=== PATIENT | male | born 1960 | race Caucasian/White ===

== ENCOUNTER → 2016-12-13 | Outpatient (CLI) | payer OTHER ==
[~2016-12-13] MED LIST: ALBUAER3 IN; ATOR1TAB PO; CETI10TA80 PO; CLOP75TA28 PO; ESCI20TA51 PO; FLUT110A INH; GABA-497 PO; GLIP-116 PO; IOHEXOL 350 MG/ML 100ML IJ ONE; LOSA100T27 PO; METO-462 PO; METO-5 PO; NIFE90TA30 PO; NORT25CA PO
[2016-12-13 14:39] LABS: INR 0.92 (0.9-1.15)
== END | disposition home or self-care (01) ==
LOC: CHF HDHVI 13:18
PROVIDERS: ATTEND Internal Medicine Cardiovascular Disease
DX: Z01.812 Encounter for preprocedural laboratory examination (principal); R79.1 Abnormal coagulation profile
CPT/HCPCS: 36415; 85610; 85730

== ENCOUNTER 2016-12-14 12:24 | Inpatient (IN) | payer BC ==
[~2016-12-14] VITALS: Ht 172.7 cm; Wt 86.8 kg
[2016-12-14] MEDS ORDERED: SODIUM CHL 0.9% 0 ML ONE (15:00)
[2016-12-14] MEDS ORDERED: ANGIOMAX 250 MG VIAL IV ONE (15:00)
[2016-12-14] MEDS ORDERED: methylPREDNISolone SOD SUCC 125 MG/2 ML VL ONE (15:01)
[2016-12-14] MEDS ORDERED: fentaNYL CITRATE 100 MCG/2 ML VL ONE (15:01)
[2016-12-14] MEDS ORDERED: MIDAZOLAM HCL 1MG/1ML-2 ML VIAL ONE (15:01)
[2016-12-14] MEDS ORDERED: diphenhdrAMINE HCL 50 MG/1 ML VL ONE (15:02)
[2016-12-14] MEDS ORDERED: LIDOCAINE 2%HCL (LOCAL ANESTH.) INJ 20ML MDV ONE (15:06)
[2016-12-14] MEDS ORDERED: HEPARIN DRIP/D5W 100UNITS/ML 250 ML IV SCH (16:11)
[2016-12-14] MEDS ORDERED: NITROGLYCERIN 0.4 MG SL TAB SL PRN (16:15)
[2016-12-14] MEDS ORDERED: DEXTROSE (50%) 50ML SYRG IV PRN (16:15)
[2016-12-14] MEDS ORDERED: ACETAMINOPHEN 500 MG TAB PO PRN (16:15)
[2016-12-14] MEDS ORDERED: MORPHINE SULF INJ 2 MG/ML SYRINGE 1ML IV PRN (16:15)
[2016-12-14] MEDS ORDERED: GLIP-116 PO (16:48)
[2016-12-14] MEDS ORDERED: ATOR1TAB PO (16:48)
[2016-12-14] MEDS ORDERED: NIFE90TA30 PO (16:48)
[2016-12-14] MEDS ORDERED: METO-5 PO (16:48)
[2016-12-14] MEDS ORDERED: GABA-497 PO (16:48)
[2016-12-14] MEDS ORDERED: CLOP75TA28 PO (16:48)
[2016-12-14] MEDS ORDERED: CETI10TA80 PO (16:48)
[2016-12-14] MEDS ORDERED: NORT25CA PO (16:48)
[2016-12-14] MEDS ORDERED: LOSA100T27 PO (16:48)
[2016-12-14] MEDS ORDERED: METO-462 PO (16:48)
[2016-12-14] MEDS ORDERED: ALBUAER3 IN (16:48)
[2016-12-14] MEDS ORDERED: FLUT110A INH (16:48)
[2016-12-14] MEDS ORDERED: ESCI20TA51 PO (16:48)
[2016-12-14] MEDS: ACCU-CHEK COMFORT CURVE STRIP VI SCH (18:00)
[2016-12-14 18:40] VITALS: BP 187/91
[2016-12-14] MEDS: ISOSORBIDE DINITRATE 10 MG TAB PO SCH (19:57)
[2016-12-14] MEDS: InsuLIN REG 1unit/0.01ml Soln (100units/ml) SC SCH (20:00)
[2016-12-14] MEDS ORDERED: InsuLIN REG 1unit/0.01ml Soln (100units/ml) SC ONE (20:15)
[2016-12-14] MEDS: glipiZIDE 5 MG TAB PO SCH (21:08)
[2016-12-14 21:09] LABS: Basophils # (auto) 0 uL; Basophils % (auto) 0.3 % (0.0-2.0); CONDITION Y; Eosinophils # (auto) 0 uL; Eosinophils % (auto) 0.1 % (0.0-7.0); Hematocrit 44.9 % (41.0-53.0); Hemoglobin 15.4 g/dL (13.5-17.5); Lymphocytes # (auto) 0.6 uL; Mean Corpuscular Hemoglobin 30.4 pg (28.0-32.0); Mean Corpuscular Hgb Conc. 34.3 g/dL (32.0-36.0); Mean Corpuscular Volume 88.7 fL (80.0-100.0); Mean Platelet Volume 8.7 fL (7.4-10.4); Monocytes # (auto) 0 uL; Monocytes % (auto) 0.2 % (0.0-12.0); Neutrophils # (auto) 6.3 uL; Neutrophils % (auto) 91.4 % (37.0-80.0); Platelet Count (auto) 421 10^3/uL (140-450); Red Cell Distribution Width 12.5 % (11.6-16.0); White Blood Cell 6.9 10^3/uL (4.4-10.8)
[2016-12-14 21:24] LABS: INR 0.98 (0.9-1.15); Partial Thromboplastin Time 33.4 sec (22.64-33.71); Prothrombin Time 10.7 sec (9.37-12.3)
[2016-12-14 22:00] VITALS: BP 139/76
[2016-12-14] MEDS ORDERED: METOPROLOL TARTRATE 50 MG TAB PO SCH ×3 (22:00)
[2016-12-14] MEDS ORDERED: HYDROcodone-ACET 10/325MG TAB PO ONE (22:15)
[2016-12-14] MEDS: ATORVASTATIN 20 MG TAB PO SCH (22:29)
[2016-12-14] MEDS: SODIUM CHLOR 0.9% PF (SALINE LOCK) 10ML VIAL IV SCH (22:29)
[2016-12-14] MEDS: GABAPENTIN 300 MG CAP PO SCH (22:29)
[2016-12-14] MEDS: METOPROLOL TARTRATE 50 MG TAB PO SCH (22:32)
[2016-12-14] MEDS: INSULIN DETEMIR(LEVEMIR) 1unit/0.01ml Soln (100units/ml) SC SCH (23:00)
[2016-12-14] MEDS ORDERED: InsuLIN REG 1unit/0.01ml Soln (100units/ml) IV ONE (23:15)
[2016-12-14] MEDS ORDERED: SODIUM CHLORIDE 0.9% 1,000 ML IV ONE (23:15)
[2016-12-15 00:04] LABS: INR 0.94 (0.9-1.15); Partial Thromboplastin Time 32.1 sec (22.64-33.71); Prothrombin Time 10.2 sec (9.37-12.3)
[2016-12-15] MEDS: BUDESONIDE (INHALATION) 0.5 MG/2 ML NEB NEB SCH ×3 (00:10→22:15)
[2016-12-15] MEDS ORDERED: ACCU-CHEK COMFORT CURVE STRIP VI ONE (00:30)
[2016-12-15] MEDS: InsuLIN REG 1unit/0.01ml Soln (100units/ml) SC SCH ×5 (02:39→18:04)
[2016-12-15 03:56] VITALS: BP 120/72
[2016-12-15 05:00] VITALS: BP 107/67
[2016-12-15] MEDS: SODIUM CHLOR 0.9% PF (SALINE LOCK) 10ML VIAL IV SCH ×3 (05:48→22:22)
[2016-12-15] MEDS: GABAPENTIN 300 MG CAP PO SCH ×3 (05:49→21:36)
[2016-12-15] MEDS: ACCU-CHEK COMFORT CURVE STRIP VI SCH ×6 (05:49→23:45)
[2016-12-15] MEDS: ISOSORBIDE DINITRATE 10 MG TAB PO SCH ×3 (05:49→18:04)
[2016-12-15] MEDS: glipiZIDE 5 MG TAB PO SCH ×2 (06:35→17:46)
[2016-12-15 07:00] VITALS: BP 123/74
[2016-12-15 07:15] LABS: INR 0.98 (0.9-1.15); Partial Thromboplastin Time 36.6 sec (22.64-33.71); Prothrombin Time 10.7 sec (9.37-12.3)
[2016-12-15] MEDS: HEPARIN DRIP/D5W 100UNITS/ML 250 ML IV SCH ×3 (09:38→17:41)
[2016-12-15] MEDS: LORATADINE 10 MG TAB PO SCH (09:58)
[2016-12-15] MEDS: NIFEdipine ER 30 MG TAB PO SCH (09:58)
[2016-12-15] MEDS: ASPirin 81 mg TAB PO SCH (09:59)
[2016-12-15] MEDS: CITALOPRAM HYDROBR 20 MG TAB PO SCH (09:59)
[2016-12-15] MEDS: NORTRIPTYLINE HCL 25 MG CAP PO SCH (09:59)
[2016-12-15] MEDS: METOPROLOL TARTRATE 50 MG TAB PO SCH ×2 (10:00→21:38)
[2016-12-15] MEDS: HYDROcodone-ACET 5/325MG TAB PO PRN (10:24)
[2016-12-15 11:36] VITALS: BP 117/71
[2016-12-15 16:28] VITALS: BP 113/70
[2016-12-15 16:33] LABS: INR 0.98 (0.9-1.15); Partial Thromboplastin Time 29.4 sec (22.64-33.71); Prothrombin Time 10.7 sec (9.37-12.3)
[2016-12-15] MEDS ORDERED: HEPARIN SODIUM (PORCINE) 5000 UNITS/ML 1ML VIAL IV ONE (17:30)
[2016-12-15 21:23] VITALS: BP 104/60
[2016-12-15] MEDS: ATORVASTATIN 20 MG TAB PO SCH (21:38)
[2016-12-15] MEDS: INSULIN DETEMIR(LEVEMIR) 1unit/0.01ml Soln (100units/ml) SC SCH (21:52)
[2016-12-15] MEDS: ALBUTEROL SULF 2.5 MG/0.5ML(0.5%) NEB SOLN NEB PRN (22:15)
[2016-12-16] VITALS (7 sets, daily range): BP systolic 105–134; BP diastolic 62–77
[2016-12-16] MEDS: InsuLIN REG 1unit/0.01ml Soln (100units/ml) SC SCH ×5 (00:10→22:54)
[2016-12-16 02:05] LABS: Partial Thromboplastin Time 55.4 sec (22.64-33.71); Prothrombin Time 10.9 sec (9.37-12.3)
[2016-12-16 02:05] LABS: INR 1.01 (0.9-1.15); Partial Thromboplastin Time 56.2 sec (22.64-33.71)
[2016-12-16 05:56] LABS: Basophils # (auto) 0.2 uL; Basophils % (auto) 1.1 % (0.0-2.0); CONDITION Y; DEFINITIVE SEE PRINTOUT; Eosinophils # (auto) 0.1 uL; Eosinophils % (auto) 0.6 % (0.0-7.0); Hematocrit 39.9 % (41.0-53.0); Hemoglobin 13.9 g/dL (13.5-17.5); Lymphocytes # (auto) 6.1 uL; Lymphocytes % (auto) 37.1 % (10.0-50.0); Mean Corpuscular Hemoglobin 30.6 pg (28.0-32.0); Mean Corpuscular Hgb Conc. 34.8 g/dL (32.0-36.0); Mean Corpuscular Volume 87.8 fL (80.0-100.0); Mean Platelet Volume 8.1 fL (7.4-10.4); Monocytes # (auto) 0.9 uL; Monocytes % (auto) 5.6 % (0.0-12.0); Neutrophils # (auto) 9.1 uL; Neutrophils % (auto) 55.6 % (37.0-80.0); Platelet Count (auto) 447 10^3/uL (140-450); Red Cell Distribution Width 12.6 % (11.6-16.0); White Blood Cell 16.3 10^3/uL (4.4-10.8)
[2016-12-16] MEDS: ACCU-CHEK COMFORT CURVE STRIP VI SCH ×8 (06:00→23:36)
[2016-12-16] MEDS: SODIUM CHLOR 0.9% PF (SALINE LOCK) 10ML VIAL IV SCH ×3 (06:27→22:33)
[2016-12-16] MEDS: GABAPENTIN 300 MG CAP PO SCH ×3 (06:27→22:32)
[2016-12-16] MEDS: glipiZIDE 5 MG TAB PO SCH ×2 (06:28→18:00)
[2016-12-16 06:33] LABS: Prothrombin Time 10.9 sec (9.37-12.3)
[2016-12-16 06:45] LABS: Partial Thromboplastin Time 73.2 sec (22.64-33.71)
[2016-12-16] MEDS: ISOSORBIDE DINITRATE 10 MG TAB PO SCH ×3 (08:15→18:00)
[2016-12-16 08:47] LABS: Allen Test Yes; Base Excess -0.3 mmol/L (-2.0-2.0); Blood 02Sat 93.2 % (96-100); Blood MetHb 0.4 % (0.0-1.5); HCO3 24.3 mmol/L (22-26.0); HHb 6.7 % (0.0-5.0); MODE ROOM AIR; O2Hb 91.9 % (94.0-97.0); PCO2 39.9 mmHg (35.0-45.0); PCO2(T) 39.9 mmHg (35.0-45.0); PO2 70.5 mmHg (80.0-100.0); PO2(T) 70.5 mmHg (80.0-100.0); Room 0239T; Sample Type Arterial; pH 7.403 (7.350-7.450)
[2016-12-16] MEDS: HEPARIN DRIP/D5W 100UNITS/ML 250 ML IV SCH ×2 (09:06→22:31)
[2016-12-16] MEDS: NIFEdipine ER 30 MG TAB PO SCH (10:00)
[2016-12-16 10:54] LABS: Urine Bilirubin Negative (Negative); Urine Blood Negative /uL (Negative); Urine Color Yellow (Yellow); Urine Ketone Negative (Negative); Urine Nitrite Negative (Negative); Urine RBC <1 /hpf (0 - 3); Urine Urobilinogen Normal (Negative); Urine pH 5.5 (5.0-8.0)
[2016-12-16] MEDS: NORTRIPTYLINE HCL 25 MG CAP PO SCH (10:56)
[2016-12-16] MEDS: BUDESONIDE (INHALATION) 0.5 MG/2 ML NEB NEB SCH ×2 (10:57→19:33)
[2016-12-16] MEDS: CITALOPRAM HYDROBR 20 MG TAB PO SCH (10:57)
[2016-12-16] MEDS: ASPirin 81 mg TAB PO SCH (10:57)
[2016-12-16] MEDS: METOPROLOL TARTRATE 50 MG TAB PO SCH ×2 (10:57→22:33)
[2016-12-16] MEDS: LORATADINE 10 MG TAB PO SCH (10:57)
[2016-12-16 10:58] LABS: Urine Glucose 2+ mg/dL (Normal)
[2016-12-16 11:33] LABS: Albumin 3.8 g/dL (3.4-5.0); Bilirubin, Total 0.5 mg/dL (0.2-1.0); Calcium 9.1 mg/dL (8.5-10.1); Potassium 3.7 mmol/L (3.5-5.1)
[2016-12-16 12:17] LABS: INR 1.01 (0.9-1.15); Partial Thromboplastin Time 63.9 sec (22.64-33.71)
[2016-12-16] MEDS ORDERED: ACETAMINOPHEN 325 MG TAB PO PRN (13:30)
[2016-12-16] MEDS: IPRATROPIUM BROM 0.5 MG/2.5ML INH SOL NEB SCH ×2 (14:13→19:33)
[2016-12-16] MEDS: ATORVASTATIN 20 MG TAB PO SCH (22:32)
[2016-12-16] MEDS: HYDROcodone-ACET 5/325MG TAB PO PRN (22:32)
[2016-12-16] MEDS: INSULIN DETEMIR(LEVEMIR) 1unit/0.01ml Soln (100units/ml) SC SCH (22:55)
[2016-12-17] VITALS (32 sets, daily range): BP systolic 88–167; BP diastolic 31–99
[2016-12-17] MEDS: ACETYLCYSTEINE 10 %(100MG/ML) SOL 4ML NEB SCH ×2 (00:12→09:42)
[2016-12-17] MEDS: IPRATROPIUM BROM 0.5 MG/2.5ML INH SOL NEB SCH ×4 (00:12→18:51)
[2016-12-17] MEDS: BUDESONIDE (INHALATION) 0.5 MG/2 ML NEB NEB SCH ×2 (05:55→18:51)
[2016-12-17] MEDS: ISOSORBIDE DINITRATE 10 MG TAB PO SCH ×4 (06:00→17:49)
[2016-12-17] MEDS: SODIUM CHLOR 0.9% PF (SALINE LOCK) 10ML VIAL IV SCH ×3 (06:04→21:41)
[2016-12-17] MEDS: GABAPENTIN 300 MG CAP PO SCH ×3 (06:05→21:41)
[2016-12-17] MEDS: ACCU-CHEK COMFORT CURVE STRIP VI SCH ×8 (06:08→21:42)
[2016-12-17 06:17] LABS: Basophils # (auto) 0.1 uL; Basophils % (auto) 0.9 % (0.0-2.0); CONDITION Y; Eosinophils # (auto) 0.2 uL; Eosinophils % (auto) 1.8 % (0.0-7.0); Hematocrit 41.3 % (41.0-53.0); Hemoglobin 14.1 g/dL (13.5-17.5); Lymphocytes # (auto) 4.5 uL; Lymphocytes % (auto) 43.9 % (10.0-50.0); Mean Corpuscular Hemoglobin 30.4 pg (28.0-32.0); Mean Corpuscular Hgb Conc. 34.3 g/dL (32.0-36.0); Mean Corpuscular Volume 88.7 fL (80.0-100.0); Mean Platelet Volume 8.1 fL (7.4-10.4); Monocytes # (auto) 0.8 uL; Monocytes % (auto) 7.4 % (0.0-12.0); Neutrophils # (auto) 4.7 uL; Platelet Count (auto) 407 10^3/uL (140-450); White Blood Cell 10.3 10^3/uL (4.4-10.8)
[2016-12-17] MEDS: InsuLIN REG 1unit/0.01ml Soln (100units/ml) SC SCH ×4 (06:40→21:58)
[2016-12-17] MEDS: glipiZIDE 5 MG TAB PO SCH ×2 (06:40→17:50)
[2016-12-17 06:41] LABS: INR 0.99 (0.9-1.15); Prothrombin Time 10.8 sec (9.37-12.3)
[2016-12-17 06:42] LABS: Partial Thromboplastin Time 76.9 sec (22.64-33.71)
[2016-12-17] MEDS ORDERED: HYDROcodone-ACET 10/325MG TAB PO PRN (09:00)
[2016-12-17] MEDS: HEPARIN DRIP/D5W 100UNITS/ML 250 ML IV SCH (09:13)
[2016-12-17] MEDS: ALBUTEROL SULF 2.5 MG/0.5ML(0.5%) NEB SOLN NEB PRN (09:41)
[2016-12-17] MEDS: CITALOPRAM HYDROBR 20 MG TAB PO SCH (10:32)
[2016-12-17] MEDS: NIFEdipine ER 30 MG TAB PO SCH (10:33)
[2016-12-17] MEDS: LORATADINE 10 MG TAB PO SCH (10:33)
[2016-12-17] MEDS: METOPROLOL TARTRATE 50 MG TAB PO SCH ×2 (10:33→21:56)
[2016-12-17] MEDS: ASPirin 81 mg TAB PO SCH (10:33)
[2016-12-17] MEDS: NORTRIPTYLINE HCL 25 MG CAP PO SCH (10:34)
[2016-12-17] MEDS ORDERED: CHLORHEXIDINE 0.12% ORAL rinse 473ML MT ONE (20:49)
[2016-12-17] MEDS ORDERED: CHLORHEXIDINE 4% TOPICAL soln 118ML TOP ONE (20:49)
[2016-12-17] MEDS: MUPIROCIN 2% OINT 22GM TOP SCH (21:00)
[2016-12-17] MEDS: ATORVASTATIN 20 MG TAB PO SCH (21:41)
[2016-12-17] MEDS: INSULIN DETEMIR(LEVEMIR) 1unit/0.01ml Soln (100units/ml) SC SCH (21:58)
[2016-12-17] MEDS ORDERED: ASCORBIC ACID 500 MG TAB PO ONE (22:00)
[2016-12-17] MEDS ORDERED: PREG100C PO (23:42)
[2016-12-17] MEDS ORDERED: METF-371 PO (23:52)
[2016-12-17] MEDS ORDERED: HYDR-531 PO (23:53)
[2016-12-18] VITALS (51 sets, daily range): BP systolic 23–146; BP diastolic 0–69
[2016-12-18] MEDS: HEPARIN DRIP/D5W 100UNITS/ML 250 ML IV SCH (00:23)
[2016-12-18] MEDS: ACETYLCYSTEINE 10 %(100MG/ML) SOL 4ML NEB SCH ×2 (00:25→06:02)
[2016-12-18] MEDS: IPRATROPIUM BROM 0.5 MG/2.5ML INH SOL NEB SCH ×2 (00:25→06:02)
[2016-12-18] MEDS ORDERED: CHLORHEXIDINE 4% TOPICAL soln 118ML TOP ONE (03:00)
[2016-12-18] MEDS: SODIUM CHLOR 0.9% PF (SALINE LOCK) 10ML VIAL IV SCH (03:43)
[2016-12-18 03:44] LABS: Basophils # (auto) 0 uL; Basophils % (auto) 0.5 % (0.0-2.0); CONDITION Y; Eosinophils # (auto) 0.3 uL; Eosinophils % (auto) 2.8 % (0.0-7.0); Hematocrit 40.4 % (41.0-53.0); Hemoglobin 13.8 g/dL (13.5-17.5); Lymphocytes # (auto) 3.7 uL; Mean Corpuscular Hemoglobin 30.3 pg (28.0-32.0); Mean Corpuscular Hgb Conc. 34.2 g/dL (32.0-36.0); Mean Corpuscular Volume 88.7 fL (80.0-100.0); Mean Platelet Volume 7.9 fL (7.4-10.4); Monocytes # (auto) 0.7 uL; Monocytes % (auto) 6.1 % (0.0-12.0); Neutrophils # (auto) 6.2 uL; Neutrophils % (auto) 56.6 % (37.0-80.0); Platelet Count (auto) 439 10^3/uL (140-450); Red Cell Distribution Width 13.1 % (11.6-16.0); White Blood Cell 10.9 10^3/uL (4.4-10.8)
[2016-12-18 03:59] LABS: INR 1.01 (0.9-1.15); Partial Thromboplastin Time 63.7 sec (22.64-33.71)
[2016-12-18] MEDS ORDERED: ACCU-CHEK COMFORT CURVE STRIP VI ONE (05:00)
[2016-12-18] MEDS: GABAPENTIN 300 MG CAP PO SCH (06:00)
[2016-12-18] MEDS ORDERED: CHLORHEXIDINE 0.12% ORAL rinse 473ML MT ONE (06:00)
[2016-12-18] MEDS: ACCU-CHEK COMFORT CURVE STRIP VI SCH ×11 (06:00→23:04)
[2016-12-18] MEDS: InsuLIN REG 1unit/0.01ml Soln (100units/ml) SC SCH (06:00)
[2016-12-18] MEDS: ISOSORBIDE DINITRATE 10 MG TAB PO SCH (06:00)
[2016-12-18] MEDS: BUDESONIDE (INHALATION) 0.5 MG/2 ML NEB NEB SCH (06:02)
[2016-12-18] MEDS ORDERED: ceFAZolin 1GM VL ONE (06:40)
[2016-12-18] MEDS ORDERED: PAPAVERINE HCL 60 MG/2 ML 2ML VIAL ONE (06:40)
[2016-12-18] MEDS ORDERED: NEOMYCIN-BACITRACIN-POLYM 15GM TOP OINT TOP ONE (06:40)
[2016-12-18] MEDS ORDERED: HEPARIN SODIUM (PORCINE) 5000 UNITS/ML 1ML VIAL ONE (06:41)
[2016-12-18] MEDS ORDERED: HEPARIN 1,000 UNITS/ml 1ML VIAL ONE (06:41)
[2016-12-18] MEDS: glipiZIDE 5 MG TAB PO SCH (06:55)
[2016-12-18] MEDS ORDERED: ALBUMIN 25% 300 ML IV ONE (07:57)
[2016-12-18] MEDS: MUPIROCIN 2% OINT 22GM TOP SCH (08:00)
[2016-12-18] MEDS ORDERED: VANCOMYCIN 1GM/250ML D5W 250 ML IV ONE (08:00)
[2016-12-18] MEDS ORDERED: ceFAZolin 1GM/50ML D5W 50 ML IV ONE (08:00)
[2016-12-18] MEDS ORDERED: MIDAZOLAM HCL 1MG/1ML-2 ML VIAL ONE (08:06)
[2016-12-18] MEDS ORDERED: fentaNYL CITRATE 100 MCG/2 ML VL ONE (08:08)
[2016-12-18] MEDS ORDERED: ROCURONIUM 10MG/ML 10ML VIAL IV ONE (08:10)
[2016-12-18] MEDS ORDERED: PLASMA-LYTE A pH7.4 4,000 ML INJ ONE (08:31)
[2016-12-18] MEDS ORDERED: PHENYLEPHRINE INJ 20 MG in SODIUM CHL 0.9% 250 ML IV ONE (09:00)
[2016-12-18] MEDS ORDERED: VASOPRESSIN 50 UNITS in SODIUM CHL 0.9% 247.5 ML IV ONE (09:00)
[2016-12-18] MEDS ORDERED: InsuLIN R (HUMAN) 100 UNITS in SODIUM CHL 0.9% 99 ML IV ONE (09:00)
[2016-12-18] MEDS ORDERED: AMINOCAPROIC ACID 10 GM in SODIUM CHL 0.9% 100 ML IV ONE (09:00)
[2016-12-18] MEDS ORDERED: HEPARIN 30000 UNITS in SODIUM CHLORIDE 0.9% 1000 ML IV ONE (09:00)
[2016-12-18] MEDS ORDERED: AMINOCAPROIC ACID 5 GM in SODIUM CHL 0.9% 250 ML IV ONE (09:00)
[2016-12-18] MEDS ORDERED: EPINEPHrine HCL 4 MG in D5W 5% 250 ML IV ONE (09:00)
[2016-12-18] MEDS ORDERED: ALBUMIN 25% 100 ML IV ONE (09:03)
[2016-12-18] MEDS ORDERED: DEXAMETHASONE SODIUM PHOSP 120 MG/30ml VIAL IV ONE (09:15)
[2016-12-18] MEDS ORDERED: AMINOCAPROIC ACID 5 GM/20 ML VL IV ONE (09:15)
[2016-12-18] MEDS ORDERED: CALCIUM CHLOR(10%) 100MG/ML 10ML SYRINGE IV ONE (09:15)
[2016-12-18] MEDS ORDERED: ADENOSINE 6 MG/2 ML INJ IV ONE (09:15)
[2016-12-18] MEDS ORDERED: MAGNESIUM SULF 50% 40 MEQ/10 ML VL IV ONE (09:45)
[2016-12-18] MEDS ORDERED: HEPARIN SODIUM (PORCINE) 5000 UNITS/ML 1ML VIAL SC ONE (09:45)
[2016-12-18] MEDS ORDERED: PHENYLEPHRINE HCL 10 MG/ML VL IV ONE (09:45)
[2016-12-18] MEDS ORDERED: SODIUM BICARBONATE 8.4% INJ 50ML SYRINGE IV ONE (09:45)
[2016-12-18] MEDS ORDERED: POTASSIUM CHL 2MEQ/ML 20ML IV ONE (09:45)
[2016-12-18] MEDS ORDERED: MANNITOL 20 % (20GM/100ML) SOLN 500ML IV ONE (09:45)
[2016-12-18] MEDS ORDERED: LIDOCAINE HCL 100 MG/5ML (2%) SYRG INJ IV ONE (09:45)
[2016-12-18] MEDS ORDERED: ESMOLOL HCL 10 ML IV ONE (09:55)
[2016-12-18 14:04] LABS: Blood 02Sat 99.2 % (96-100); Blood MetHb 0.7 % (0.0-1.5); HCO3 22.6 mmol/L (22-26.0); HHb 0.8 % (0.0-5.0); MODE VENT - A/C; O2Hb 98.5 % (94.0-97.0); PCO2 30.5 mmHg (35.0-45.0); PCO2(T) 30.5 mmHg (35.0-45.0); PO2 470.8 mmHg (80.0-100.0); PO2(T) 470.8 mmHg (80.0-100.0); Sample Type Arterial; pH 7.487 (7.350-7.450)
[2016-12-18 14:05] LABS: Base Excess -2.5 mmol/L (-2.0-2.0); Blood 02Sat 99.1 % (96-100); Blood COHb 0.3 % (0.5-1.5); Blood MetHb 0.7 % (0.0-1.5); HCO3 23.3 mmol/L (22-26.0); HHb 0.9 % (0.0-5.0); MODE VENT - A/C; O2Hb 98.1 % (94.0-97.0); PO2 445.6 mmHg (80.0-100.0); PO2(T) 445.6 mmHg (80.0-100.0); Sample Type Arterial; pH 7.341 (7.350-7.450)
[2016-12-18 14:06] LABS: Base Excess -0.1 mmol/L (-2.0-2.0); Blood 02Sat 98.7 % (96-100); Blood COHb 0.3 % (0.5-1.5); Blood MetHb 0.9 % (0.0-1.5); HCO3 24.1 mmol/L (22-26.0); HHb 1.3 % (0.0-5.0); MODE OXYGENATOR/CPB; O2Hb 97.5 % (94.0-97.0); PCO2 37.2 mmHg (35.0-45.0); PCO2(T) 37.2 mmHg (35.0-45.0); PO2 432.7 mmHg (80.0-100.0); PO2(T) 432.7 mmHg (80.0-100.0); Sample Type Arterial; pH 7.429 (7.350-7.450)
[2016-12-18 14:07] LABS: Base Excess -2.8 mmol/L (-2.0-2.0); Blood 02Sat 98.6 % (96-100); Blood COHb 0.3 % (0.5-1.5); HCO3 21.6 mmol/L (22-26.0); HHb 1.4 % (0.0-5.0); MODE OXYGENATOR/CPB; O2Hb 97.3 % (94.0-97.0); PCO2 35.9 mmHg (35.0-45.0); PCO2(T) 35.9 mmHg (35.0-45.0); PO2 332.9 mmHg (80.0-100.0); PO2(T) 332.9 mmHg (80.0-100.0); Sample Type Arterial; pH 7.398 (7.350-7.450)
[2016-12-18 14:08] LABS: Base Excess -4.7 mmol/L (-2.0-2.0); Blood 02Sat 98.2 % (96-100); Blood COHb 0.3 % (0.5-1.5); Blood MetHb 0.9 % (0.0-1.5); HCO3 21.3 mmol/L (22-26.0); HHb 1.8 % (0.0-5.0); MODE OXYGENATOR/CPB; PCO2 43.1 mmHg (35.0-45.0); PCO2(T) 43.1 mmHg (35.0-45.0); PO2 210.9 mmHg (80.0-100.0); PO2(T) 210.9 mmHg (80.0-100.0); Sample Type Arterial; pH 7.312 (7.350-7.450)
[2016-12-18 14:09] LABS: Base Excess -1.3 mmol/L (-2.0-2.0); Blood 02Sat 98.7 % (96-100); Blood COHb 0.3 % (0.5-1.5); Blood MetHb 0.8 % (0.0-1.5); HCO3 24.7 mmol/L (22-26.0); HHb 1.3 % (0.0-5.0); MODE OXYGENATOR/CPB; O2Hb 97.6 % (94.0-97.0); PCO2 47.2 mmHg (35.0-45.0); PCO2(T) 47.2 mmHg (35.0-45.0); Sample Type Arterial; pH 7.337 (7.350-7.450)
[2016-12-18 14:10] LABS: Base Excess -4.1 mmol/L (-2.0-2.0); Blood 02Sat 98.3 % (96-100); Blood COHb 0.3 % (0.5-1.5); Blood MetHb 1.1 % (0.0-1.5); HCO3 23.7 mmol/L (22-26.0); HHb 1.7 % (0.0-5.0); MODE VAPOTHERM; O2Hb 96.9 % (94.0-97.0); PO2 300.8 mmHg (80.0-100.0); PO2(T) 300.8 mmHg (80.0-100.0); Sample Type Arterial; pH 7.229 (7.350-7.450)
[2016-12-18 14:25] LABS: Hepatitis B Surface Antibody Negative
[2016-12-18] MEDS ORDERED: INSULIN DRIP 100 UNIT/100ML 100 ML IV SCH (14:41)
[2016-12-18] MEDS: PROPOFOL 100 ML IV SCH ×3 (14:41→21:16)
[2016-12-18] MEDS ORDERED: PHENYLEPHRINE IV 250 ML IV SCH (14:41)
[2016-12-18] MEDS ORDERED: NOREPINEPHRINE BITARTRATE 250 ML IV SCH (14:41)
[2016-12-18] MEDS ORDERED: NITROGLYCERIN 50MG/250ML 250 ML IV SCH (14:41)
[2016-12-18] MEDS: MILRINONE 20MG/100ML 100 ML IV SCH (14:41)
[2016-12-18] MEDS: NICARDIPINE 25MG/250ML BAG KIT 250 ML IV SCH ×2 (14:41→19:41)
[2016-12-18] MEDS: SODIUM CHLORIDE 0.9% 500 ML IV SCH (14:41)
[2016-12-18] MEDS ORDERED: IPRATROPIUM BROM 0.5 MG/2.5ML INH SOL NEB PRN (14:45)
[2016-12-18] MEDS ORDERED: SODIUM BICARBONATE 8.4% INJ 50ML SYRINGE IV PRN (14:45)
[2016-12-18] MEDS ORDERED: VANCOMYCIN 1GM/250ML D5W 250 ML IV SCH (14:45)
[2016-12-18] MEDS ORDERED: AMIODARONE HCL 150 MG in D5W 5% 100 ML IV ONE (14:45)
[2016-12-18] MEDS ORDERED: ONDANSETRON HCL 4 MG/2 ML VIAL IV PRN (14:45)
[2016-12-18] MEDS ORDERED: POTASSIUM CHL 20MEQ/100ML 100 ML IV PRN (14:45)
[2016-12-18] MEDS ORDERED: MORPHINE SULF INJ 2 MG/ML SYRINGE 1ML IV PRN (14:45)
[2016-12-18] MEDS ORDERED: MAGNESIUM SULFATE 1GM/100ML 100 ML IV PRN (14:45)
[2016-12-18] MEDS ORDERED: METOCLOPRAMIDE HCL 5MG/ml INJ 2ml VIAL IV PRN (14:45)
[2016-12-18] MEDS ORDERED: ceFAZolin 1GM 2 GM in D5W 5% 100 ML IV SCH (14:45)
[2016-12-18] MEDS ORDERED: DEXTROSE (50%) 50ML SYRG IV PRN (14:45)
[2016-12-18] MEDS ORDERED: AMIODARONE HCL 900 MG in DEXTROSE 500 ML IV SCH (14:51)
[2016-12-18] MEDS ORDERED: fentaNYL Drip 2500mCg/250mlNS 250 ML IV SCH (15:11)
[2016-12-18 15:12] LABS: Base Excess -5.2 mmol/L (-2.0-2.0); Blood 02Sat 98.5 % (96-100); Blood COHb 0.3 % (0.5-1.5); Blood MetHb 0.4 % (0.0-1.5); HCO3 20.8 mmol/L (22-26.0); HHb 1.5 % (0.0-5.0); MODE VENT - PCV; O2Hb 97.8 % (94.0-97.0); PCO2 42.2 mmHg (35.0-45.0); PCO2(T) 42.2 mmHg (35.0-45.0); PO2 263.7 mmHg (80.0-100.0); PO2(T) 263.7 mmHg (80.0-100.0); Pressure Support 8; Sample Type Arterial; Spont Vt 280
[2016-12-18] MEDS: MORPHINE SULFATE 4 MG/ML SYRG IV PRN ×2 (15:16→18:24)
[2016-12-18 15:17] LABS: Blood 02Sat 81.2 % (96-100); MODE VENT - SIMV; Pressure Support 8; Sample Type Venous; Venous Blood COHb 0.7 % (0.5-1.5); Venous Blood MetHb 0.5 % (0.0-1.5); Venous Blood O2Hb 80.2 % (94.0-97.0); Venous Blood PO2 48.9 mmHg (38.0-42.0); Venous Blood PO2(T) 48.9 mmHg (38.0-42.0); Venous Deoxyhemoglobin 18.6 % (0.0-5.0)
[2016-12-18 15:22] LABS: Basophils # (auto) 0 uL; Basophils % (auto) 0.2 % (0.0-2.0); CONDITION Y; Eosinophils # (auto) 0 uL; Eosinophils % (auto) 0.3 % (0.0-7.0); Hematocrit 29.1 % (41.0-53.0); Hemoglobin 10.2 g/dL (13.5-17.5); Lymphocytes # (auto) 0.7 uL; Lymphocytes % (auto) 4.9 % (10.0-50.0); Mean Corpuscular Hemoglobin 31.1 pg (28.0-32.0); Mean Corpuscular Hgb Conc. 35.1 g/dL (32.0-36.0); Mean Corpuscular Volume 88.5 fL (80.0-100.0); Mean Platelet Volume 7.7 fL (7.4-10.4); Monocytes # (auto) 0.3 uL; Monocytes % (auto) 2.4 % (0.0-12.0); Neutrophils # (auto) 13.2 uL; Neutrophils % (auto) 92.2 % (37.0-80.0); Platelet Count (auto) 268 10^3/uL (140-450); Red Cell Distribution Width 12.5 % (11.6-16.0); White Blood Cell 14.3 10^3/uL (4.4-10.8)
[2016-12-18] MEDS: ALBUMIN 5% 250 ML IV PRN ×2 (15:37→20:31)
[2016-12-18 15:45] LABS: BUN/Creatinine Ratio 15.7; INR 1.13 (0.9-1.15); Partial Thromboplastin Time 31.1 sec (22.64-33.71); Prothrombin Time 12.3 sec (9.37-12.3)
[2016-12-18 15:48] LABS: Total Protein 5.7 g/dL (6.4-8.2)
[2016-12-18 15:50] LABS: Potassium 4.2 mmol/L (3.5-5.1)
[2016-12-18] MEDS: PANTOPRAZOLE SODIUM 40 MG/10 ML VIAL IV SCH (16:26)
[2016-12-18] MEDS: ceFAZolin 1GM 2 GM in D5W 5% 100 ML IV SCH (17:00)
[2016-12-18] MEDS ORDERED: PROPRANOLOL HCL 1 MG/ML VIAL IV PRN (17:15)
[2016-12-18] MEDS ORDERED: CALCIUM GLUC 4.65meq/50ml D5AE 50 ML IV ONE (17:30)
[2016-12-18] MEDS ORDERED: POTASSIUM PHOSPHATE 22 MEQ in SODIUM CHL 0.9% 100 ML IV ONE (17:30)
[2016-12-18] MEDS: SODIUM CHLORIDE 0.9% 1,000 ML IV SCH (18:00)
[2016-12-18 18:06] LABS: Base Excess -3.4 mmol/L (-2.0-2.0); Blood 02Sat 96.7 % (96-100); Blood COHb 0.4 % (0.5-1.5); Blood MetHb 0.4 % (0.0-1.5); HCO3 21.8 mmol/L (22-26.0); HHb 3.3 % (0.0-5.0); MODE VENT - SIMV; O2Hb 95.9 % (94.0-97.0); PCO2 40.1 mmHg (35.0-45.0); PCO2(T) 40.1 mmHg (35.0-45.0); PO2 104.2 mmHg (80.0-100.0); PO2(T) 104.2 mmHg (80.0-100.0); Pressure Support 8; Sample Type Arterial; pH 7.354 (7.350-7.450)
[2016-12-18 19:36] LABS: Magnesium 2.8 mg/dL (1.6-2.6); Potassium 4.3 mmol/L (3.5-5.1)
[2016-12-18] MEDS: VANCOMYCIN 1GM/250ML D5W 250 ML IV SCH (20:41)
[2016-12-18] MEDS: AMIODARONE HCL 900 MG in DEXTROSE 500 ML IV SCH (20:51)
[2016-12-18] MEDS: CHLORHEXIDINE 0.12% ORAL rinse 473ML MT SCH (22:09)
[2016-12-18 22:37] LABS: Basophils # (auto) 0 uL; CONDITION Y; Eosinophils # (auto) 0 uL; Hematocrit 28.5 % (41.0-53.0); Hemoglobin 9.7 g/dL (13.5-17.5); Lymphocytes # (auto) 0.4 uL; Mean Corpuscular Hemoglobin 30.8 pg (28.0-32.0); Mean Corpuscular Hgb Conc. 34.1 g/dL (32.0-36.0); Mean Corpuscular Volume 90.1 fL (80.0-100.0); Monocytes # (auto) 0.2 uL; Monocytes % (auto) 1.6 % (0.0-12.0); Neutrophils # (auto) 9.4 uL; Neutrophils % (auto) 94.4 % (37.0-80.0); Platelet Count (auto) 264 10^3/uL (140-450); White Blood Cell 9.9 10^3/uL (4.4-10.8)
[2016-12-18 23:06] LABS: Magnesium 2.6 mg/dL (1.6-2.6); Potassium 4.3 mmol/L (3.5-5.1)
[2016-12-18 23:37] LABS: Phosphorus 1.1 mg/dL (2.5-4.90)
[2016-12-19] VITALS (82 sets, daily range): BP systolic 5–270; BP diastolic 0–237
[2016-12-19] MEDS: SODIUM CHLORIDE 0.9% 1,000 ML IV SCH ×3 (00:25→12:00)
[2016-12-19] MEDS: NICARDIPINE 25MG/250ML BAG KIT 250 ML IV SCH ×5 (00:41→20:41)
[2016-12-19] MEDS: ceFAZolin 1GM 2 GM in D5W 5% 100 ML IV SCH ×3 (00:53→17:08)
[2016-12-19] MEDS: ACCU-CHEK COMFORT CURVE STRIP VI SCH ×17 (00:53→21:24)
[2016-12-19] MEDS: MILRINONE 20MG/100ML 100 ML IV SCH (01:13)
[2016-12-19] MEDS: PROPOFOL 100 ML IV SCH (01:23)
[2016-12-19] MEDS: MORPHINE SULFATE 4 MG/ML SYRG IV PRN ×4 (01:35→10:24)
[2016-12-19 03:56] LABS: Basophils # (auto) 0 uL; CONDITION Y; Eosinophils # (auto) 0 uL; Hematocrit 27.1 % (41.0-53.0); Hemoglobin 9.4 g/dL (13.5-17.5); Lymphocytes # (auto) 0.5 uL; Lymphocytes % (auto) 4.2 % (10.0-50.0); Mean Corpuscular Hemoglobin 30.9 pg (28.0-32.0); Mean Corpuscular Hgb Conc. 34.8 g/dL (32.0-36.0); Mean Corpuscular Volume 88.8 fL (80.0-100.0); Mean Platelet Volume 8.5 fL (7.4-10.4); Monocytes # (auto) 0.3 uL; Monocytes % (auto) 2.8 % (0.0-12.0); Platelet Count (auto) 244 10^3/uL (140-450); White Blood Cell 11.8 10^3/uL (4.4-10.8)
[2016-12-19 04:11] LABS: BUN/Creatinine Ratio 14.8; Calcium 8.2 mg/dL (8.5-10.1); Magnesium 2.6 mg/dL (1.6-2.6); Phosphorus 1.7 mg/dL (2.5-4.90)
[2016-12-19 04:16] LABS: Base Excess -0.8 mmol/L (-2.0-2.0); Blood 02Sat 96.8 % (96-100); Blood COHb 0.1 % (0.5-1.5); Blood MetHb 0.3 % (0.0-1.5); HCO3 23.9 mmol/L (22-26.0); HHb 3.2 % (0.0-5.0); MODE VENT - SIMV; O2Hb 96.4 % (94.0-97.0); PCO2 39.7 mmHg (35.0-45.0); PCO2(T) 40.6 mmHg (35.0-45.0); PO2 97.8 mmHg (80.0-100.0); PO2(T) 100.8 mmHg (80.0-100.0); Pressure Support 8; Sample Type Arterial; pH 7.397 (7.350-7.450)
[2016-12-19] MEDS: SODIUM CHLORIDE 0.9% 500 ML IV SCH ×2 (08:00→14:56)
[2016-12-19] MEDS ORDERED: SODIUM PHOSPHATES 20 MEQ in SODIUM CHL 0.9% 100 ML IV ONE (08:30)
[2016-12-19 09:05] LABS: Base Excess -2.2 mmol/L (-2.0-2.0); Blood 02Sat 95.3 % (96-100); Blood COHb 0.3 % (0.5-1.5); Blood MetHb 0.3 % (0.0-1.5); HCO3 22.3 mmol/L (22-26.0); HHb 4.7 % (0.0-5.0); MODE VENT - CPAP; O2Hb 94.7 % (94.0-97.0); PCO2 37.1 mmHg (35.0-45.0); PCO2(T) 37.1 mmHg (35.0-45.0); PIP 17; PO2 81.6 mmHg (80.0-100.0); PO2(T) 81.6 mmHg (80.0-100.0); Pressure Support 8; Sample Type Arterial; Spont Vt 705; pH 7.396 (7.350-7.450)
[2016-12-19] MEDS: VANCOMYCIN 1GM/250ML D5W 250 ML IV SCH ×2 (09:28→21:25)
[2016-12-19] MEDS ORDERED: PANTOPRAZOLE SODIUM 40 MG/10 ML VIAL IV SCH (10:00)
[2016-12-19] MEDS ORDERED: MILK OF MAGNESIA 30ML SUSP PO PRN (10:00)
[2016-12-19] MEDS: CHLORHEXIDINE 0.12% ORAL rinse 473ML MT SCH ×2 (10:10→21:25)
[2016-12-19] MEDS: PANTOPRAZOLE SODIUM 40 MG/10 ML VIAL IV SCH (10:14)
[2016-12-19] MEDS ORDERED: PANTOPRAZOLE 40 MG TAB PO ONE (10:30)
[2016-12-19] MEDS ORDERED: MORPHINE SULFATE 4 MG/ML SYRG IV PRN (12:00)
[2016-12-19] MEDS ORDERED: MORPHINE SULF INJ 2 MG/ML SYRINGE 1ML IV PRN (12:00)
[2016-12-19] MEDS ORDERED: POTASSIUM CHL 20MEQ/100ML 100 ML IV PRN (12:00)
[2016-12-19] MEDS ORDERED: HYDROcodone-ACET 7.5/325MG TAB PO PRN (12:45)
[2016-12-19] MEDS ORDERED: HYDROmorphone HCL 2 MG/ML VL ONE (12:55)
[2016-12-19] MEDS: HYDROmorphone HCL 2 MG/ML VL IV PRN ×2 (12:58→18:16)
[2016-12-19] MEDS: Boost Glucose Control 8 Ounces PO SCH ×2 (13:26→18:00)
[2016-12-19] MEDS: NITROGLYCERIN 0.4MG/HR TOPICAL PATCH TD SCH (13:35)
[2016-12-19] MEDS ORDERED: NITROGLYCERIN 50MG/250ML 250 ML IV ONE (13:36)
[2016-12-19] MEDS: ASPirin 81 mg TAB PO SCH (13:36)
[2016-12-19] MEDS: METOPROLOL TARTRATE 25 MG TAB PO SCH ×2 (13:36→21:26)
[2016-12-19] MEDS: DOCUSATE SOD 100 MG CAP PO SCH ×2 (13:36→21:25)
[2016-12-19] MEDS: ASCORBIC ACID 500 MG TAB PO SCH ×2 (13:36→21:26)
[2016-12-19] MEDS: IPRATROPIUM BROM 0.5 MG/2.5ML INH SOL NEB SCH ×2 (14:17→19:39)
[2016-12-19] MEDS ORDERED: hydrALAZINE HCL 20 MG/ML VL IV PRN (14:30)
[2016-12-19] MEDS ORDERED: LISINOPRIL 5 MG TAB PO ONE (14:30)
[2016-12-19] MEDS: HYDROcodone-ACET 10/325MG TAB PO PRN (15:05)
[2016-12-19] MEDS: fentaNYL CITRATE 100 MCG/2 ML VL IV PRN ×3 (15:40→22:15)
[2016-12-19] MEDS ORDERED: DEXTROSE (50%) 50ML SYRG IV PRN (17:15)
[2016-12-19] MEDS ORDERED: InsuLIN REG 1unit/0.01ml Soln (100units/ml) ONE (17:26)
[2016-12-19] MEDS: glipiZIDE 5 MG TAB PO SCH (17:27)
[2016-12-19] MEDS: FUROSEMIDE 40 MG TAB PO SCH (17:27)
[2016-12-19] MEDS: InsuLIN REG 1unit/0.01ml Soln (100units/ml) SC SCH ×2 (17:36→21:35)
[2016-12-19 18:55] LABS: BUN/Creatinine Ratio 18.9; Bilirubin, Total 0.7 mg/dL (0.2-1.0); Calcium 7.7 mg/dL (8.5-10.1); Magnesium 2.5 mg/dL (1.6-2.6); Phosphorus 3.4 mg/dL (2.5-4.90); Potassium 4.3 mmol/L (3.5-5.1); Total Protein 6.5 g/dL (6.4-8.2)
[2016-12-19] MEDS ORDERED: CALCIUM GLUC 4.65meq/50ml D5AE 50 ML IV ONE (19:15)
[2016-12-19] MEDS: BUDESONIDE (INHALATION) 0.5 MG/2 ML NEB NEB SCH (19:39)
[2016-12-19] MEDS ORDERED: InsuLIN REG 1unit/0.01ml Soln (100units/ml) SC SCH (20:00)
[2016-12-19] MEDS ORDERED: ACCU-CHEK COMFORT CURVE STRIP VI SCH (20:00)
[2016-12-19] MEDS: AMIODARONE HCL 900 MG in DEXTROSE 500 ML IV SCH (20:51)
[2016-12-19] MEDS: GABAPENTIN 300 MG CAP PO SCH (21:26)
[2016-12-19] MEDS ORDERED: ATORVASTATIN 20 MG TAB PO SCH ×2 (22:00)
[2016-12-19] MEDS: ACETYLCYSTEINE 10 %(100MG/ML) SOL 4ML NEB SCH (22:23)
[2016-12-20] VITALS (68 sets, daily range): BP systolic 80–161; BP diastolic 42–93
[2016-12-20] MEDS: ceFAZolin 1GM 2 GM in D5W 5% 100 ML IV SCH ×2 (00:31→13:11)
[2016-12-20] MEDS: HYDROmorphone HCL 2 MG/ML VL IV PRN ×2 (00:32→04:36)
[2016-12-20] MEDS: InsuLIN REG 1unit/0.01ml Soln (100units/ml) SC SCH ×6 (00:40→20:12)
[2016-12-20] MEDS: NICARDIPINE 25MG/250ML BAG KIT 250 ML IV SCH ×5 (01:41→21:41)
[2016-12-20] MEDS: fentaNYL CITRATE 100 MCG/2 ML VL IV PRN ×3 (02:30→20:35)
[2016-12-20] MEDS: ACCU-CHEK COMFORT CURVE STRIP VI SCH ×6 (04:35→20:12)
[2016-12-20 04:45] LABS: Basophils # (auto) 0 uL; CONDITION Y; DEFINITIVE SEE PRINTOUT; Eosinophils # (auto) 0 uL; Hematocrit 28.9 % (41.0-53.0); Hemoglobin 9.8 g/dL (13.5-17.5); Lymphocytes # (auto) 1.5 uL; Lymphocytes % (auto) 7.9 % (10.0-50.0); Mean Corpuscular Hemoglobin 30.6 pg (28.0-32.0); Mean Corpuscular Hgb Conc. 33.9 g/dL (32.0-36.0); Mean Corpuscular Volume 90.4 fL (80.0-100.0); Mean Platelet Volume 8.6 fL (7.4-10.4); Monocytes # (auto) 1.7 uL; Neutrophils # (auto) 15.4 uL; Neutrophils % (auto) 83.1 % (37.0-80.0); Platelet Count (auto) 315 10^3/uL (140-450); Red Cell Distribution Width 13.3 % (11.6-16.0); White Blood Cell 18.5 10^3/uL (4.4-10.8)
[2016-12-20 06:25] LABS: BUN/Creatinine Ratio 20.4; Potassium 4.2 mmol/L (3.5-5.1)
[2016-12-20 06:26] LABS: Bilirubin, Total 0.5 mg/dL (0.2-1.0); Magnesium 2.4 mg/dL (1.6-2.6); Total Protein 6.8 g/dL (6.4-8.2)
[2016-12-20] MEDS: FUROSEMIDE 40 MG TAB PO SCH ×2 (06:37→18:00)
[2016-12-20] MEDS: glipiZIDE 5 MG TAB PO SCH ×2 (06:37→20:13)
[2016-12-20] MEDS: SODIUM CHLORIDE 0.9% 1,000 ML IV SCH ×2 (06:55→12:15)
[2016-12-20] MEDS: ACETYLCYSTEINE 10 %(100MG/ML) SOL 4ML NEB SCH ×2 (07:25→18:45)
[2016-12-20] MEDS: IPRATROPIUM BROM 0.5 MG/2.5ML INH SOL NEB SCH ×5 (07:25→22:05)
[2016-12-20] MEDS: BUDESONIDE (INHALATION) 0.5 MG/2 ML NEB NEB SCH ×2 (07:25→18:45)
[2016-12-20] MEDS ORDERED: CALCIUM GLUC 4.65meq/50ml D5AE 50 ML IV ONE (07:30)
[2016-12-20] MEDS: Boost Glucose Control 8 Ounces PO SCH ×3 (08:00→19:37)
[2016-12-20] MEDS: HYDROcodone-ACET 10/325MG TAB PO PRN ×2 (09:05→18:33)
[2016-12-20] MEDS: DOCUSATE SOD 100 MG CAP PO SCH ×2 (10:00→21:34)
[2016-12-20] MEDS ORDERED: LISINOPRIL 5 MG TAB PO SCH (10:00)
[2016-12-20] MEDS: NITROGLYCERIN 0.4MG/HR TOPICAL PATCH TD SCH (10:00)
[2016-12-20] MEDS: GABAPENTIN 300 MG CAP PO SCH ×2 (10:00→21:34)
[2016-12-20] MEDS: PANTOPRAZOLE 40 MG TAB PO SCH (10:00)
[2016-12-20] MEDS: ASCORBIC ACID 500 MG TAB PO SCH ×2 (10:00→21:34)
[2016-12-20] MEDS: LEXAPRO PO SCH (10:00)
[2016-12-20] MEDS: METOPROLOL TARTRATE 25 MG TAB PO SCH ×2 (10:00→21:35)
[2016-12-20] MEDS: ASPirin 81 mg TAB PO SCH (10:29)
[2016-12-20] MEDS: CHLORHEXIDINE 0.12% ORAL rinse 473ML MT SCH ×2 (10:29→22:00)
[2016-12-20] MEDS: POTASSIUM CHL 20 Meq TABLET PO SCH (10:35)
[2016-12-20] MEDS: VANCOMYCIN 1GM/250ML D5W 250 ML IV SCH (11:00)
[2016-12-20] MEDS ORDERED: KETOROLAC TROMETH 30 MG/ML 1ML VIAL ONE (11:23)
[2016-12-20] MEDS ORDERED: KETOROLAC TROMETH 30 MG/ML 1ML VIAL IV ONE (11:30)
[2016-12-20] MEDS ORDERED: ZOLPIDEM TARTRATE 5 MG TAB PO PRN (11:45)
[2016-12-20] MEDS ORDERED: LISINOPRIL 5 MG TAB PO ONE (11:45)
[2016-12-20] MEDS: AMIODARONE HCL 900 MG in DEXTROSE 500 ML IV SCH (20:51)
[2016-12-20] MEDS: ATORVASTATIN 20 MG TAB PO SCH (21:34)
[2016-12-21] VITALS (30 sets, daily range): BP systolic 88–137; BP diastolic 51–86
[2016-12-21] MEDS: ACCU-CHEK COMFORT CURVE STRIP VI SCH ×8 (00:04→21:44)
[2016-12-21] MEDS: HYDROcodone-ACET 10/325MG TAB PO PRN ×3 (00:08→16:28)
[2016-12-21] MEDS: NICARDIPINE 25MG/250ML BAG KIT 250 ML IV SCH ×5 (02:41→22:41)
[2016-12-21] MEDS: InsuLIN REG 1unit/0.01ml Soln (100units/ml) SC SCH ×5 (03:28→21:46)
[2016-12-21 04:28] LABS: Albumin 3.4 g/dL (3.4-5.0); Calcium 8.1 mg/dL (8.5-10.1); Magnesium 2.4 mg/dL (1.6-2.6); Potassium 3.6 mmol/L (3.5-5.1)
[2016-12-21 04:29] LABS: BUN/Creatinine Ratio 30.7
[2016-12-21] MEDS: fentaNYL CITRATE 100 MCG/2 ML VL IV PRN ×4 (05:40→19:38)
[2016-12-21] MEDS: FUROSEMIDE 40 MG TAB PO SCH ×2 (06:56→17:50)
[2016-12-21] MEDS: glipiZIDE 5 MG TAB PO SCH ×2 (06:56→17:53)
[2016-12-21] MEDS: Boost Glucose Control 8 Ounces PO SCH ×3 (08:00→18:00)
[2016-12-21] MEDS ORDERED: DEXTROSE (50%) 50ML SYRG IV PRN (08:15)
[2016-12-21] MEDS ORDERED: KETOROLAC TROMETH 30 MG/ML 1ML VIAL IV PRN (08:30)
[2016-12-21] MEDS ORDERED: POTASSIUM CHL 20 Meq TABLET PO ONE (08:30)
[2016-12-21] MEDS ORDERED: POTASSIUM CHL 20 Meq TABLET PO PRN (08:30)
[2016-12-21] MEDS: BUDESONIDE (INHALATION) 0.5 MG/2 ML NEB NEB SCH ×2 (09:45→22:08)
[2016-12-21] MEDS: IPRATROPIUM BROM 0.5 MG/2.5ML INH SOL NEB SCH ×5 (09:45→22:07)
[2016-12-21] MEDS ORDERED: LISINOPRIL 5 MG TAB PO SCH (10:00)
[2016-12-21] MEDS: LEXAPRO PO SCH ×2 (10:00→10:26)
[2016-12-21] MEDS: DOCUSATE SOD 100 MG CAP PO SCH ×2 (10:16→21:43)
[2016-12-21] MEDS: ASCORBIC ACID 500 MG TAB PO SCH ×2 (10:17→21:43)
[2016-12-21] MEDS: GABAPENTIN 300 MG CAP PO SCH ×2 (10:19→21:43)
[2016-12-21] MEDS: PANTOPRAZOLE 40 MG TAB PO SCH (10:19)
[2016-12-21] MEDS: LISINOPRIL 5 MG TAB PO SCH (10:21)
[2016-12-21] MEDS: METOPROLOL TARTRATE 25 MG TAB PO SCH ×2 (10:22→21:43)
[2016-12-21] MEDS: ASPirin 81 mg TAB PO SCH (10:22)
[2016-12-21] MEDS: POTASSIUM CHL 20 Meq TABLET PO SCH (10:23)
[2016-12-21] MEDS: CHLORHEXIDINE 0.12% ORAL rinse 473ML MT SCH ×2 (10:27→21:43)
[2016-12-21] MEDS: NITROGLYCERIN 0.4MG/HR TOPICAL PATCH TD SCH (10:27)
[2016-12-21] MEDS: SODIUM CHLORIDE 0.9% 1,000 ML IV SCH (12:00)
[2016-12-21] MEDS: ACETYLCYSTEINE 10 %(100MG/ML) SOL 4ML NEB SCH ×2 (12:25→22:08)
[2016-12-21] MEDS: SODIUM CHLORIDE 0.9% 500 ML IV SCH (14:41)
[2016-12-21] MEDS: metFORMIN HYDROCHLORIDE 500 MG TAB PO SCH (17:51)
[2016-12-21] MEDS: AMIODARONE HCL 900 MG in DEXTROSE 500 ML IV SCH (20:51)
[2016-12-21] MEDS: ATORVASTATIN 20 MG TAB PO SCH (21:42)
[2016-12-21] MEDS: KETOROLAC TROMETH 30 MG/ML 1ML VIAL IV PRN (22:33)
[2016-12-22] VITALS (42 sets, daily range): BP systolic 101–150; BP diastolic 58–97
[2016-12-22] MEDS: fentaNYL CITRATE 100 MCG/2 ML VL IV PRN ×3 (02:30→11:45)
[2016-12-22] MEDS: NICARDIPINE 25MG/250ML BAG KIT 250 ML IV SCH ×5 (03:41→23:41)
[2016-12-22 04:13] LABS: Albumin 3.1 g/dL (3.4-5.0); Calcium 8.3 mg/dL (8.5-10.1); Potassium 3.7 mmol/L (3.5-5.1)
[2016-12-22 04:19] LABS: BUN/Creatinine Ratio 25.6; Bilirubin, Total 0.8 mg/dL (0.2-1.0); Total Protein 5.9 g/dL (6.4-8.2)
[2016-12-22] MEDS: FUROSEMIDE 40 MG TAB PO SCH ×2 (05:45→18:00)
[2016-12-22] MEDS: IPRATROPIUM BROM 0.5 MG/2.5ML INH SOL NEB SCH ×4 (06:28→19:55)
[2016-12-22] MEDS: ACETYLCYSTEINE 10 %(100MG/ML) SOL 4ML NEB SCH ×2 (06:28→19:56)
[2016-12-22] MEDS: BUDESONIDE (INHALATION) 0.5 MG/2 ML NEB NEB SCH ×2 (06:28→19:56)
[2016-12-22] MEDS: HYDROcodone-ACET 10/325MG TAB PO PRN ×3 (06:38→20:00)
[2016-12-22] MEDS: metFORMIN HYDROCHLORIDE 500 MG TAB PO SCH ×2 (06:39→18:00)
[2016-12-22] MEDS: glipiZIDE 5 MG TAB PO SCH ×2 (06:39→18:00)
[2016-12-22] MEDS: ACCU-CHEK COMFORT CURVE STRIP VI SCH ×4 (06:40→22:10)
[2016-12-22] MEDS: InsuLIN REG 1unit/0.01ml Soln (100units/ml) SC SCH ×4 (06:41→22:16)
[2016-12-22] MEDS: Boost Glucose Control 8 Ounces PO SCH ×3 (08:00→18:00)
[2016-12-22] MEDS: NITROGLYCERIN 0.4MG/HR TOPICAL PATCH TD SCH (09:52)
[2016-12-22] MEDS: GABAPENTIN 300 MG CAP PO SCH ×2 (09:53→22:09)
[2016-12-22] MEDS: LISINOPRIL 5 MG TAB PO SCH (09:53)
[2016-12-22] MEDS: ASPirin 81 mg TAB PO SCH (09:54)
[2016-12-22] MEDS: METOPROLOL TARTRATE 25 MG TAB PO SCH ×2 (09:55→22:10)
[2016-12-22] MEDS: ASCORBIC ACID 500 MG TAB PO SCH ×2 (09:56→22:09)
[2016-12-22] MEDS: POTASSIUM CHL 20 Meq TABLET PO SCH (09:56)
[2016-12-22] MEDS: LEXAPRO PO SCH (10:00)
[2016-12-22] MEDS: DOCUSATE SOD 100 MG CAP PO SCH ×2 (10:00→22:09)
[2016-12-22] MEDS: ENOXAPARIN SOD 30 MG/0.3 ML SYRINGE SC SCH (10:00)
[2016-12-22] MEDS: CHLORHEXIDINE 0.12% ORAL rinse 473ML MT SCH ×2 (10:00→22:00)
[2016-12-22] MEDS: PANTOPRAZOLE 40 MG TAB PO SCH (10:00)
[2016-12-22] MEDS ORDERED: FUROSEMIDE 40 MG TAB PO ONE (14:00)
[2016-12-22] MEDS: FERROUS SULFATE 325 MG TAB PO SCH (18:20)
[2016-12-22] MEDS: AMIODARONE HCL 900 MG in DEXTROSE 500 ML IV SCH (20:51)
[2016-12-22] MEDS: ATORVASTATIN 20 MG TAB PO SCH (22:09)
[2016-12-23] VITALS (34 sets, daily range): BP systolic 92–144; BP diastolic 44–91
[2016-12-23] MEDS: NICARDIPINE 25MG/250ML BAG KIT 250 ML IV SCH ×3 (04:41→14:41)
[2016-12-23] MEDS: FUROSEMIDE 40 MG TAB PO SCH (06:30)
[2016-12-23] MEDS: metFORMIN HYDROCHLORIDE 500 MG TAB PO SCH (06:47)
[2016-12-23] MEDS: glipiZIDE 5 MG TAB PO SCH (06:47)
[2016-12-23] MEDS: ACCU-CHEK COMFORT CURVE STRIP VI SCH ×2 (06:48→12:00)
[2016-12-23] MEDS: InsuLIN REG 1unit/0.01ml Soln (100units/ml) SC SCH ×2 (07:12→12:31)
[2016-12-23] MEDS: HYDROcodone-ACET 10/325MG TAB PO PRN (07:12)
[2016-12-23] MEDS: KETOROLAC TROMETH 30 MG/ML 1ML VIAL IV PRN (08:03)
[2016-12-23] MEDS: Boost Glucose Control 8 Ounces PO SCH ×2 (08:30→12:23)
[2016-12-23] MEDS: FERROUS SULFATE 325 MG TAB PO SCH (08:45)
[2016-12-23 09:06] LABS: Basophils # (auto) 0.1 uL; Basophils % (auto) 0.5 % (0.0-2.0); CONDITION Y; Eosinophils # (auto) 0.4 uL; Eosinophils % (auto) 3.2 % (0.0-7.0); Hematocrit 32.9 % (41.0-53.0); Hemoglobin 11.4 g/dL (13.5-17.5); Lymphocytes # (auto) 1.9 uL; Lymphocytes % (auto) 17.6 % (10.0-50.0); Mean Corpuscular Hemoglobin 30.7 pg (28.0-32.0); Mean Corpuscular Hgb Conc. 34.7 g/dL (32.0-36.0); Mean Corpuscular Volume 88.3 fL (80.0-100.0); Mean Platelet Volume 7.8 fL (7.4-10.4); Monocytes # (auto) 0.8 uL; Monocytes % (auto) 7.6 % (0.0-12.0); Neutrophils # (auto) 7.8 uL; Neutrophils % (auto) 71.1 % (37.0-80.0); Platelet Count (auto) 274 10^3/uL (140-450); Red Cell Distribution Width 12.5 % (11.6-16.0); White Blood Cell 10.9 10^3/uL (4.4-10.8)
[2016-12-23] MEDS: CHLORHEXIDINE 0.12% ORAL rinse 473ML MT SCH (09:45)
[2016-12-23] MEDS ORDERED: FURO40TA4 PO (09:56)
[2016-12-23] MEDS ORDERED: POTA20TA53 PO (09:56)
[2016-12-23] MEDS ORDERED: DOCU100C8 PO (09:56)
[2016-12-23] MEDS ORDERED: LEVO500T21 PO (09:56)
[2016-12-23] MEDS ORDERED: ASPI81CH43 PO (09:56)
[2016-12-23] MEDS: LEXAPRO PO SCH (10:00)
[2016-12-23] MEDS ORDERED: METOPROLOL TARTRATE 50 MG TAB PO SCH (10:00)
[2016-12-23] MEDS: LISINOPRIL 5 MG TAB PO SCH (10:00)
[2016-12-23] MEDS ORDERED: LEVOFLOXACIN 500 MG TAB PO SCH (10:00)
[2016-12-23 10:12] LABS: Urine Bilirubin Negative (Negative); Urine Color Yellow (Yellow); Urine Glucose Normal (Normal); Urine Ketone Negative (Negative); Urine Nitrite Negative (Negative); Urine RBC 9 /hpf (0 - 3); Urine Squamous Epithelial Cell FEW /hpf (<5); Urine Urobilinogen Normal (Negative)
[2016-12-23 10:13] LABS: Urine Blood 1+ /uL (Negative)
[2016-12-23] MEDS: NITROGLYCERIN 0.4MG/HR TOPICAL PATCH TD SCH (10:17)
[2016-12-23] MEDS: DOCUSATE SOD 100 MG CAP PO SCH (10:18)
[2016-12-23] MEDS: POTASSIUM CHL 20 Meq TABLET PO SCH (10:18)
[2016-12-23] MEDS: ASCORBIC ACID 500 MG TAB PO SCH (10:19)
[2016-12-23] MEDS: ASPirin 81 mg TAB PO SCH (10:19)
[2016-12-23] MEDS: ENOXAPARIN SOD 30 MG/0.3 ML SYRINGE SC SCH (10:19)
[2016-12-23] MEDS: PANTOPRAZOLE 40 MG TAB PO SCH (10:19)
[2016-12-23] MEDS: GABAPENTIN 300 MG CAP PO SCH (10:19)
[2016-12-23] MEDS: IPRATROPIUM BROM 0.5 MG/2.5ML INH SOL NEB SCH ×2 (10:20→14:00)
[2016-12-23] MEDS: ACETYLCYSTEINE 10 %(100MG/ML) SOL 4ML NEB SCH (10:21)
[2016-12-23] MEDS ORDERED: [UNRECOGNIZED DRUG - OTHER] IV ONE (15:59)
[2016-12-23] MEDS ORDERED: NITROGLYCERIN 50MG/250ML BTL IV ONE (15:59)
== END 2016-12-23 16:00 | disposition home or self-care (01) | DRG 233 ==
LOC: CATH 12:24 → EAST 12:25 → TELE-EAST 22:55 → ICU WEST 12-17 09:30
PROVIDERS: ADMIT Internal Medicine Cardiovascular Disease; ATTEND Internal Medicine Cardiovascular Disease
PROC: 4A023N7 Measurement of Cardiac Sampling and Pressure, Left Heart, Percutaneous Approach (ICD-10-PCS; principal; 2016-12-14)
PROC: B2111ZZ Fluoroscopy of Multiple Coronary Arteries using Low Osmolar Contrast (ICD-10-PCS; 2016-12-14)
PROC: B2151ZZ Fluoroscopy of Left Heart using Low Osmolar Contrast (ICD-10-PCS; 2016-12-14)
PROC: 021109W Bypass Coronary Artery, Two Arteries from Aorta with Autologous Venous Tissue, Open Approach (ICD-10-PCS; 2016-12-18)
PROC: 02100Z9 Bypass Coronary Artery, One Artery from Left Internal Mammary, Open Approach (ICD-10-PCS; 2016-12-18)
PROC: 06BQ4ZZ Excision of Left Saphenous Vein, Percutaneous Endoscopic Approach (ICD-10-PCS; 2016-12-18)
PROC: 06BP4ZZ Excision of Right Saphenous Vein, Percutaneous Endoscopic Approach (ICD-10-PCS; 2016-12-18)
PROC: 03B10ZZ Excision of Left Internal Mammary Artery, Open Approach (ICD-10-PCS; 2016-12-18)
PROC: 5A1221Z Performance of Cardiac Output, Continuous (ICD-10-PCS; 2016-12-18)
PROC: B24BZZ4 Ultrasonography of Heart with Aorta, Transesophageal (ICD-10-PCS; 2016-12-18)
PROC: 3E083GC Introduction of Other Therapeutic Substance into Heart, Percutaneous Approach (ICD-10-PCS; 2016-12-18)
PROC: 5A1935Z Respiratory Ventilation, Less than 24 Consecutive Hours (ICD-10-PCS; 2016-12-18)
PROC: 0BH17EZ Insertion of Endotracheal Airway into Trachea, Via Natural or Artificial Opening (ICD-10-PCS; 2016-12-18)
PROC: 5A09457 Assistance with Respiratory Ventilation, 24-96 Consecutive Hours, Continuous Positive Airway Pressure (ICD-10-PCS; 2016-12-19)
DX: I25.110 Atherosclerotic heart disease of native coronary artery with unstable angina pectoris (principal); J96.00 Acute respiratory failure, unspecified whether with hypoxia or hypercapnia; I10 Essential (primary) hypertension; Z82.49 Family history of ischemic heart disease and other diseases of the circulatory system; B19.20 Unspecified viral hepatitis C without hepatic coma; D72.829 Elevated white blood cell count, unspecified; E11.42 Type 2 diabetes mellitus with diabetic polyneuropathy; E11.21 Type 2 diabetes mellitus with diabetic nephropathy; E11.65 Type 2 diabetes mellitus with hyperglycemia; F12.90 Cannabis use, unspecified, uncomplicated; G47.33 Obstructive sleep apnea (adult) (pediatric); K70.9 Alcoholic liver disease, unspecified; J45.909 Unspecified asthma, uncomplicated; T45.525A Adverse effect of antithrombotic drugs, initial encounter; R79.1 Abnormal coagulation profile; Z88.0 Allergy status to penicillin; Z88.8 Allergy status to other drugs, medicaments and biological substances; Z91.041 Radiographic dye allergy status
CPT/HCPCS: 36415; 36600; 71010; 80048; 80053; 81001; 82805; 82962; 83036; 83735; 84100; 84132; 84484; 85025; 85576; 85610; 85730; 86704; 86706; 86708; 86803; 86850; 86900; 86901; 86920; 87070; 87081; 87205; 87340; 93005; 93306; 93458; 93886; 93970; 94002; 94003; 94640; 94660; 99152; C1751; C1768; C9113; J0153; J0610; J0690; J1100; J1642; J1644; J1815; J1885; J2250; J2440; J2704; J3010; J3480; J7060

== ENCOUNTER → 2016-12-27 | Outpatient (CLI) | payer BC ==
[~2016-12-27] MED LIST changes: +ASPI81CH43 PO; -CLOP75TA28 PO; +DOCU100C8 PO; +FURO40TA4 PO; -GABA-497 PO; +HYDR-531 PO; -IOHEXOL 350 MG/ML 100ML IJ ONE; +LEVO500T21 PO; +METF-371 PO; -METO-5 PO; +POTA20TA53 PO; +PREG100C PO
[2016-12-27 11:20] LABS: Basophils # (auto) 0.1 uL; Basophils % (auto) 0.7 % (0.0-2.0); CONDITION Y; Eosinophils # (auto) 0.2 uL; Eosinophils % (auto) 1.6 % (0.0-7.0); Hematocrit 29.7 % (41.0-53.0); Hemoglobin 10.3 g/dL (13.5-17.5); Lymphocytes % (auto) 14.5 % (10.0-50.0); Mean Corpuscular Hemoglobin 30.8 pg (28.0-32.0); Mean Corpuscular Hgb Conc. 34.6 g/dL (32.0-36.0); Mean Corpuscular Volume 88.9 fL (80.0-100.0); Mean Platelet Volume 7.5 fL (7.4-10.4); Monocytes # (auto) 0.9 uL; Monocytes % (auto) 6.2 % (0.0-12.0); Neutrophils # (auto) 10.6 uL; Platelet Count (auto) 167 10^3/uL (140-450); Red Cell Distribution Width 13.4 % (11.6-16.0); White Blood Cell 13.8 10^3/uL (4.4-10.8)
== END | disposition home or self-care (01) ==
LOC: LAB 11:00
PROVIDERS: ATTEND Specialist
DX: I25.10 Atherosclerotic heart disease of native coronary artery without angina pectoris (principal); D72.829 Elevated white blood cell count, unspecified
CPT/HCPCS: 36415; 85025

== ENCOUNTER → 2017-01-10 | Outpatient (CLI) | payer BC | END | disposition home or self-care (01) | LOC: XY 16:25 | PROVIDERS: ATTEND Thoracic Surgery (Cardiothoracic Vascular Surgery) | DX: I82.432 Acute embolism and thrombosis of left popliteal vein (principal); I73.9 Peripheral vascular disease, unspecified; Z95.1 Presence of aortocoronary bypass graft | CPT/HCPCS: 93926; 93971 ==

== ENCOUNTER → 2017-01-23 | Outpatient (CLI) | payer BC ==
[2017-01-23 16:54] LABS: Basophils # (auto) 0.1 uL; Basophils % (auto) 0.9 % (0.0-2.0); CONDITION Y; Eosinophils # (auto) 0.3 uL; Eosinophils % (auto) 4.7 % (0.0-7.0); Hematocrit 40.8 % (41.0-53.0); Hemoglobin 13.4 g/dL (13.5-17.5); Lymphocytes # (auto) 2.2 uL; Lymphocytes % (auto) 30.4 % (10.0-50.0); Mean Corpuscular Hgb Conc. 32.9 g/dL (32.0-36.0); Mean Corpuscular Volume 85.3 fL (80.0-100.0); Mean Platelet Volume 9.1 fL (7.4-10.4); Monocytes # (auto) 0.5 uL; Monocytes % (auto) 6.7 % (0.0-12.0); Neutrophils # (auto) 4.2 uL; Neutrophils % (auto) 57.3 % (37.0-80.0); Platelet Count (auto) 433 10^3/uL (140-450); Red Cell Distribution Width 14.1 % (11.6-16.0); White Blood Cell 7.3 10^3/uL (4.4-10.8)
[2017-01-23 17:14] LABS: Bilirubin, Direct 0.1 mg/dL (0-0.2); Bilirubin, Total 0.4 mg/dL (0.2-1.0); Calcium 9.7 mg/dL (8.5-10.1); Potassium 3.8 mmol/L (3.5-5.1); Total Protein 8.1 g/dL (6.4-8.2)
== END | disposition home or self-care (01) ==
LOC: LAB 10:27
PROVIDERS: ATTEND Internal Medicine Cardiovascular Disease
DX: I10 Essential (primary) hypertension (principal); D64.9 Anemia, unspecified; E78.00 Pure hypercholesterolemia, unspecified; E03.9 Hypothyroidism, unspecified; E55.9 Vitamin D deficiency, unspecified; R97.20 Elevated prostate specific antigen [PSA]; K74.1 Hepatic sclerosis; E11.9 Type 2 diabetes mellitus without complications; N39.0 Urinary tract infection, site not specified; R53.81 Other malaise
CPT/HCPCS: 36415; 80048; 80061; 80076; 82306; 83036; 84153; 84403; 84443; 85025

== ENCOUNTER → 2017-02-07 | Outpatient (CLI) | payer BC ==
[~2017-02-07] VITALS: Ht 172.7 cm; Wt 86.2 kg
[~2017-02-07] MED LIST changes: +ADENOSINE 72 MG in GIVE UN-DILUTED 0 ML IV ONE; +ADENOSINE 90 MG/30 ML INJ IV ONE
== END | disposition home or self-care (01) ==
LOC: Rad HDHVI 14:02
PROVIDERS: ATTEND Internal Medicine Cardiovascular Disease
DX: I10 Essential (primary) hypertension (principal); I25.10 Atherosclerotic heart disease of native coronary artery without angina pectoris; I25.5 Ischemic cardiomyopathy; E78.00 Pure hypercholesterolemia, unspecified; Z95.1 Presence of aortocoronary bypass graft
CPT/HCPCS: 78452; 82962; 93005; 93306; 96374; 96375; A9500; J0153